=== PATIENT | female | born 1965 | race Caucasian/White ===

== ENCOUNTER → 2016-06-15 | Outpatient (CLI) | payer MEDICAID ==
--- NOTE | 2016-06-16 07:16 | XR ---
EXAMINATION TYPE: XR lumbosacral spine min 4V DATE OF EXAM: 06/15/2016 3:46 PM CLINICAL HISTORY: pain COMPARISON: NONE TECHNIQUE: Frontal, lateral, and oblique images of the lumbar spine are obtained. FINDINGS: There are 5 lumbar type vertebral bodies identified. The lumbar spine shows satisfactory alignment without evidence of acute fracture or dislocation. Vertebral body heights are within normal limits. Minimal degenerative disc space narrowing with ventral spondylosis. The overlying soft tis tiera appears unremarkable. IMPRESSION: No acute fracture or dislocation is seen in the lumbar spine.ICD 10 NO FRACTURE, INITIAL EVALUATION
== END | disposition home or self-care (01) ==
LOC: RADXRYALE 08:55
PROVIDERS: ATTEND Family Medicine
DX: M54.17 Radiculopathy, lumbosacral region (principal); M54.9 Dorsalgia, unspecified
CPT/HCPCS: 72110

== ENCOUNTER → 2017-11-28 | Outpatient (CLI) | payer MEDICAID ==
--- NOTE | 2017-11-28 10:29 | ECHOF ---
Referral Reason:I10 Hypertension,R07.9 Chest Pain,R06.02 Shortness MEASUREMENTS -------- HEIGHT: 167.6 cm WEIGHT: 111.6 kg BP: 131/79 RVIDd: 3.1 cm (< 3.3) IVSd: 1.1 cm (0.6 - 1.1) LVIDd: 4.5 cm (3.9 - 5.3) LVPWd: 1.0 cm (0.6 - 1.1) IVSs: 1.7 cm LVIDs: 2.9 cm LVPWs: 1.5 cm LA Diam: 3.0 cm (2.7 - 3.8) LAESV Index (A-L): 23.36 ml/m Ao Diam: 3.0 cm (2.0 - 3.7) AV Cusp: 2.2 cm (1.5 - 2.6) MV EXCURSION: 15.488 mm (> 18.000) MV EF SLOPE: 130 mm/s (70 - 150) EPSS: 0.5 cm MV E Joaquín: 1.02 m/s MV DecT: 241 ms MV A Joaquín: 1.04 m/s MV E/A Ratio: 0.98 RAP: 5.00 mmHg RVSP: 23.71 mmHg FINDINGS -------- Sinus rhythm. This was a technically good study. The left ventricular size is normal. There is borderline concentric left ventricular hypertrophy. Overall left ventricular systolic function is normal with, an EF between 55 - 60 %. The right ventricle is normal in size. Normal LA size by volume 22+/-6 ml/m2. The right atrium is normal in size. The aortic valve is trileaflet and appears structurally normal. The mitral valve is normal. Mild tricuspid regurgitation present. Right ventricular systolic pressure is normal at < 35 mmHg. Trace/mild (physiologic) pulmonic regurgitation. The aortic root size is normal. Normal inferior vena cava with normal inspiratory collapse consistent with estimated right atrial pre ssure of 5 mmHg. There is no pericardial effusion. CONCLUSIONS -------- 1. Sinus rhythm. 2. This was a technically good study. 3. The left ventricular size is normal. 4. There is borderline concentric left ventricular hypertrophy. 5. Overall left ventricular systolic function is normal with, an EF between 55 - 60 %. 6. The right ventricle is normal in size. 7. Normal LA size by volume 22+/-6 ml/m2. 8. The right atrium is normal in size. 9. The aortic valve is trileaflet and appears structurally normal. 10. The mitral valve is normal. 11. Mild tricuspid regurgitation present. 12. Right ventricular systolic pressure is normal at < 35 mmHg. 13. Trace/mild (physiologic) pulmonic regurgitation. 14. The aortic root size is normal. 15. Normal inferior vena cava with normal inspiratory collapse consistent with estimated right atrial pressure of 5 mmHg. 16. There is no pericardial effusion. KIER DRIER: Silvia Osborn RDCS
--- NOTE | 2017-11-28 10:38 | P.STRESS ---
- Stress Test Note Stress Test Results/Findings: Exam Performed: stress echo exercise Exam Date: 11/28/17 Reason for Exam: CP/SOB Height: 5 ft 6 in Weight: 111.584 kg Protocol: YINKA Stage: 3 Duration of Exercise: 6MIN 31 SEC Resting Heart Rate: 88 Resting Blood Pressure: 138/66 Maximum Achieved Heart Rate: 163 Maximum Achieved Blood Pressure: 168/73 85% PMHR: 145 100% PMHR: 170 METS: 7.7 Technologist Comment: Stress Test Results/Findings: This is a 51-year-old female with history of hypertension and smoking being evaluated for symptoms of chest pain and shortness of breath. Stress data: Baseline EKG showed sinus rhythm with poor R-wave progression in the anterior leads. Blood pressure at rest is 138/66 with a pulse rate of 88. Patient walked on the Yinka protocol for 6 minutes and 31 seconds achieving a maximal heart rate of 168 with a blood pressure 168/73. EKGs taken during and after the exercise did not reveal any significant changes from the baseline. Echo data: Baseline echo images showed normal wall motion and thickening. Exercise echo images showed augmentation of wall motion and thickening in all segments. Final impression: #1. Negative stress test #2. Negative stress echo.
== END | disposition home or self-care (01) ==
LOC: RADECHMAIN 08:08
PROVIDERS: ATTEND Internal Medicine Clinical Cardiac Electrophysiology
DX: I07.9 Rheumatic tricuspid valve disease, unspecified (principal); I37.1 Nonrheumatic pulmonary valve insufficiency; I10 Essential (primary) hypertension
CPT/HCPCS: 93306; 93351

== ENCOUNTER 2018-02-06 06:44 | Day surgery (SDC) | payer MEDICAID ==
[2018-02-01 12:56] VITALS: BMI 39.5
[~2018-02-06 06:44] MED LIST: DEXAMETHASONE SOD PHOSPHATE 10 MG/ML 1 ML VIAL IV ONE; HYDROmorphone 0.5 MG/0.5 ML SYRINGE IVP PRN; HYDROmorphone 1 MG/ML 1 ML SYRINGE IVP PRN; LACTATED RINGERS 1,000 ML IV SCH; LIDOCAINE 1% 20 ML VIAL (10MG/ML) FOR IV START INTRADERMA PRN; ONDANSETRON 4 MG/2 ML VIAL IVP ONE; SCOPOLAMINE 1.5MG/72HR PATCH TRANSDERM ONE
[2018-02-06 07:12] VITALS: TEMP 99
[2018-02-06] MEDS ORDERED: LIDOCAINE 1% INJ 10MG/ML (20 ML MDV) ONE (07:42)
[2018-02-06] MEDS ORDERED: PROPOFOL 10 MG/ML 20 ML VIAL IV ONE (07:42)
--- NOTE | 2018-02-06 07:48 | P.GSHP ---
History of Present Illness H&P Date: 02/06/18 Chief Complaint: Screening colonoscopy This is a 52-year-old female who presents today for screening colonoscopy. Patient denies a significant GI complaints. Past Medical History Past Medical History: Hypertension History of Any Multi-Drug Resistant Organisms: None Reported Past Surgical History: Breast Surgery, Section, Cholecystectomy Additional Past Surgical History / Comment(s): lumpectomy LEFT BREAST, BENIGN Past Anesthesia/Blood Transfusion Reactions: Postoperative Nausea & Vomiting ( PONV) Smoking Status: Former smoker - Past Family History Mother Family Medical History: No Reported History Medications and Allergies Home Medications Medication Instructions Recorded Confirmed Type Losartan/Hydrochlorothiazide 1 tab PO DAILY 05/29/15 02/06/18 History [Losartan-Hctz 100-25 mg Tab] Acetaminophen Tab [Tylenol Tab] 650 mg PO Q4H 07/15/15 02/01/18 History buPROPion HCL [buPROPion HCL SR] 150 mg PO DAILY 02/01/18 02/06/18 History Allergies Allergy/AdvReac Type Severity Reaction Status Date / Time No Known Allergies Allergy Verified 02/06/18 07:06 Surgical - Exam Vital Signs Temp Pulse Resp BP Pulse Ox 99.0 F 98 16 155/81 95 02/06/18 07:11 02/06/18 07:11 02/06/18 07:11 02/06/18 07:11 02/06/18 07:11 - General well developed, no distress - Eyes PERRL - ENT normal pinna - Neck no masses - Respiratory normal expansion - Cardiovascular Rhythm: regular - Abdomen Abdomen: soft, non tender Assessment and Plan Assessment: Perform screening colonoscopy.
--- NOTE | 2018-02-06 08:01 | P.OP ---
Date of Procedure: 02/06/18 Preoperative Diagnosis: Screening colonoscopy Postoperative Diagnosis: Normal colon Procedure(s) Performed: Colonoscopy Anesthesia: MAC Surgeon: Talat Eugene Pathology: none sent Condition: stable Disposition: PACU Description of Procedure: PROCEDURE: The patient was placed on the endoscopy table in the lateral position. Digital rectal examination was performed which revealed no abnormalities. . Flexible colonoscope was then placed in the patient's anus and passed throughout the entire colon. The ileocecal valve was visualized. The cecum, ascending, transverse, descending and sigmoid colon were normal. The rectum was normal as well. There were no masses, polyps or diverticula noted in the entire colon. SUMMARY OF FINDINGS: Normal colonoscopy.
[2018-02-06 08:07] VITALS: PULSE 94
[2018-02-06 08:21] VITALS: BP 127/83; RESP 18
== END 2018-02-06 08:40 | disposition home or self-care (01) ==
LOC: ORWHC2ENDO 06:44
PROVIDERS: ATTEND Surgery
DX: Z12.11 Encounter for screening for malignant neoplasm of colon (principal); I10 Essential (primary) hypertension; Z87.891 Personal history of nicotine dependence; Z79.899 Other long term (current) drug therapy; F32.9 Major depressive disorder, single episode, unspecified
CPT/HCPCS: 81025; J2001; J2704; G0121

== ENCOUNTER → 2018-09-18 | Outpatient (CLI) | payer MEDICAID ==
--- NOTE | 2018-09-19 10:32 | MM ---
Reason for exam: screening (asymptomatic). History: Patient is postmenopausal. Benign lumpectomy of the left breast, 2006. Physical Findings: A clinical breast exam by your physician is recommended on an annual basis and results should be correlated with mammographic findings. MG 3D Screening Mammo W/Cad Bilateral CC and MLO view(s) were taken. No prior studies available for comparison. The breast tissue is heterogeneously dense. This may lower the sensitivity of mammography. Scattered benign calcifications. Focal asymmetry upper outer right breast middle third position. ASSESSMENT: Incomplete: need additional imaging evaluation, BI-RAD 0 RECOMMENDATION: Special view mammogram of the right breast. If lesion persists on supplemental views, image directed ultrasound is recommended. [facility] will attempt to contact patient to return for supplemental views and ultrasound if indicated.
== END | disposition home or self-care (01) ==
LOC: RADMAMWWP 08:11
PROVIDERS: ATTEND Family Medicine
DX: Z12.31 Encounter for screening mammogram for malignant neoplasm of breast (principal)
CPT/HCPCS: 77063; 77067

== ENCOUNTER → 2018-09-26 | Outpatient (CLI) | payer MEDICAID ==
--- NOTE | 2018-09-27 07:47 | MM ---
Reason for exam: additional evaluation requested from abnormal screening. Last mammogram was performed less than 1 month ago. History: Patient is postmenopausal. Benign excisional biopsy of the left breast, 2006. Physical Findings: Nurse did not find any significant physical abnormalities on exam. MG 3D Work Up W/Cad RT CC with magnification, MLO with magnification, and LM view(s) were taken of the right breast. Prior study comparison: September 18, 2018, bilateral MG 3d screening mammo w/cad. The breast tissue is heterogeneously dense. This may lower the sensitivity of mammography. There are benign appearing round calcifications in the right breast. No distinct lesion persists on additional views. These results were verbally communicated with the patient and result sheet given to the patient on 09/26/18. ASSESSMENT: Benign, BI-RAD 2 RECOMMENDATION: Return to routine screening mammogram schedule for both breasts.
== END | disposition home or self-care (01) ==
LOC: RADMAMWWP 14:47
PROVIDERS: ATTEND Family Medicine
DX: R92.8 Other abnormal and inconclusive findings on diagnostic imaging of breast (principal)
CPT/HCPCS: 77061; 77065

== ENCOUNTER → 2019-12-28 | Outpatient (CLI) | payer MEDICAID ==
--- NOTE | 2019-12-28 15:55 | MR ---
EXAMINATION TYPE: MR shoulder RT wo con DATE OF EXAM: 12/28/2019 COMPARISON: None HISTORY: Rt shoulder pain, limited ROM x 3 mos Multiplanar multiecho imaging of the right shoulder was performed without contrast. There is increased signal and thickening of the supraspinatus tendon at the greater tuberosity of the humerus. There is no retraction. There is small amount of fluid in the subdeltoid bursa. There is sm all shoulder joint effusion. There is moderate spurring at the AC joint and subacromial mild impingem ent. The biceps tendon is intact. Subscapularis tendon is intact. The glenoid je appear intact. I see n o bony destructive process. IMPRESSION: There is large full-thickness tear of the supraspinatus tendon without retraction. Mild shoulder join t effusion and some deltoid effusion. This is consistent with bursitis. Moderate degenerative change at the AC joint with cystic changes and spurring and subacromial impingement.
== END | disposition home or self-care (01) ==
LOC: RADMRIMAIN 08:47
PROVIDERS: ATTEND Orthopaedic Surgery Sports Medicine
DX: M75.121 Complete rotator cuff tear or rupture of right shoulder, not specified as traumatic (principal); M19.011 Primary osteoarthritis, right shoulder

== ENCOUNTER 2020-03-12 10:12 | Day surgery (SDC) | payer MEDICAID ==
[2020-03-05 10:42] VITALS: BMI 39.5
[~2020-03-12 10:12] MED LIST changes: +ACETAMINOPHEN TAB 500 MG TAB PO PRN; -DEXAMETHASONE SOD PHOSPHATE 10 MG/ML 1 ML VIAL IV ONE; +GABAPENTIN 300 MG CAP PO PRN; -HYDROmorphone 1 MG/ML 1 ML SYRINGE IVP PRN; -LIDOCAINE 1% 20 ML VIAL (10MG/ML) FOR IV START INTRADERMA PRN; +ONDANSETRON 4 MG/2 ML VIAL IVP PRN; +Pre Op ABX Message 1 EACH MISC MISCELLANE ONE; -SCOPOLAMINE 1.5MG/72HR PATCH TRANSDERM ONE; +fentaNYL (PF) 50 MCG/ML 2 ML AMP IV PRN
[2020-03-12 10:49] LABS: Glucose,Whole Blood 161 mg/dL (75-99)
[2020-03-12] MEDS ORDERED: DEXAMETHASONE SOD PHOSPHATE 4 MG/ML 1 ML VIAL IV ONE (10:50)
[2020-03-12] MEDS ORDERED: LIDOCAINE 1% (10MG/ML) FOR IV START INTRADERMA ONE (10:50)
[2020-03-12 10:54] VITALS: TEMP 98.4
[2020-03-12] MEDS ORDERED: MIDAZOLAM 2 MG/2 ML VIAL IV ONE (10:59)
[2020-03-12] MEDS ORDERED: ROPIVACAINE 5 MG/ML 30 ML VIAL ONE (12:02)
[2020-03-12] MEDS ORDERED: SUCCINYLCHOLINE CHLORIDE 100 MG/5 ML SYR IV ONE (12:02)
[2020-03-12] MEDS ORDERED: fentaNYL (PF) 50 MCG/ML 2 ML AMP ONE (12:02)
[2020-03-12] MEDS ORDERED: PHENYLEPHRINE 10 MG/ML VIAL ONE (12:02)
[2020-03-12] MEDS ORDERED: MIDAZOLAM 2 MG/2 ML VIAL ONE (12:02)
[2020-03-12] MEDS ORDERED: PROPOFOL 10 MG/ML 20 ML VIAL IV ONE (12:02)
[2020-03-12] MEDS ORDERED: LIDOCAINE 1% INJ 10MG/ML (20 ML MDV) ONE (12:02)
[2020-03-12] MEDS ORDERED: DEXAMETHASONE SOD PHOSPHATE 4 MG/ML 1 ML VIAL ONE (12:02)
[2020-03-12 13:52] LABS: Glucose,Whole Blood 180 mg/dL (75-99)
[2020-03-12 14:59] VITALS: BP 132/86
[2020-03-12 15:23] VITALS: PULSE 89; RESP 18
--- NOTE | 2020-03-12 18:29 | P.ANPRN ---
Procedure Note - Anesthesia - Nerve Block Performed Right Interscalene Single Time Out Performed: Yes Date of Procedure: 03/11/20 Procedure Start Time: 10:58 Procedure Stop Time: 11:02 Location of Patient: PreOp Indication: Acute Post-Operative Pain, Requested by Surgeon Sedation Type: Sedate with meaningful contact maintained Preparation: Sterile Prep Position: Supine Needle Types: Pajunk Needle Gauge: 21 Ultrasound used to visualize needle placement: Yes Ultrasound used to observe medication spread: Yes Blood Aspirated: No Pain Paresthesia on Injection Noted: No Resistance on Injection: Normal Image Stored and Saved: Yes Events: Uneventful and Well Tolerated (ropi .5% 20cc plus dexamethasone 4mg)
--- NOTE | 2020-03-12 20:52 | OP ---
OPERATIVE REPORT DATE OF PROCEDURE: 03/12/2020. SURGEON: Jeff Koenig M.D. [employer]: [facility]. PREOPERATIVE DIAGNOSES: 1. Right shoulder full-thickness rotator cuff tear. 2. Right shoulder superior labral tear. 3. Right shoulder bicipital tenosynovitis. 4. Right shoulder subacromial impingement. POSTOP DIAGNOSES: 1. Right shoulder full-thickness tear of the supraspinatus 2 cm x 2 cm tear. 2. Right shoulder type 2 superior labral tear. 3. Right shoulder partial tearing intra-articular long head of the biceps. 4. Right shoulder type 2-3 anterolateral acromial spur. PROCEDURE PERFORMED: 1. Right shoulder arthroscopic rotator cuff repair, 2 cm x 2 cm tear of the supraspinatus. 2. Right shoulder arthroscopic acromioplasty. 3. Right shoulder arthroscopic biceps tenotomy. 4. Right shoulder arthroscopic anterior superior posterior labral debridement. ANESTHESIA: General endotracheal. ESTIMATED BLOOD LOSS: Minimal. TOURNIQUET: None. DRAINS: None. COMPLICATIONS: None. DISPOSITION: Postanesthesia care unit. Examination under anesthesia, right shoulder elevation 160 degrees, external rotation to side is to 40 degrees, external rotation at 90 degrees, abduction 90 degrees, internal rotation 90 degrees, abduction was 60 degrees, sulcus less than 1 cm, anterior translation glenoid face, posterior translation glenoid face. ARTHROSCOPIC FINDINGS: Right shoulder: 1. Superior labrum, type 2 superior labral tear tearing both anterior post to the biceps anchor. The biceps anchor was not intact. There is also some fraying and mild partial tearing of the intra-articular portion of long head of the biceps tendon. 2. Anterior inferior labrum normal glenoid labral attached. 3. Posterior labral tearing of the posterior labrum from the 10 o'clock position and 12 o'clock position on the glenoid face. 4. Humeral head cartilage normal. 5. Rotator cuff full-thickness tear of the supraspinatus 2 cm x 2 cm with minimal retraction. 6. Glenoid face cartilage normal. 7. Subacromial space significant fraying of the undersurface of the coracoacromial ligament with a type 2 anterolateral acromial spur. INDICATIONS: Janiya is a very pleasant 54-year-old female with right shoulder pain. She sustained injury to her shoulder. She has noted weakness as well as significant pain in the shoulder. She has been through a fairly significant course of nonoperative treatment up to this point. Physical examination and MRI reveal tearing of the superior labrum as well as a full-thickness rotator cuff tear. At this point in time, she feels as if she has failed nonoperative treatment and would like to proceed with operative intervention. Long discussion held with the patient with regard to treatment options. The risks of procedure were all discussed with her in detail. These risks include, but are not limited to risk of infection, nerve damage, bleeding, pain, and a small risk of deep vein thrombosis which could lead to fatal pulmonary embolism. Further risks include lack of healing rotator cuff and the possibility for biceps contour change with a biceps tenotomy. The patient understands the operation as well as the fact there is no guarantee of improvement of her symptoms. Appropriate informed consent was obtained. DESCRIPTION OF THE PROCEDURE: Patient identified in preop holding area. Surgical site was marked by both the patient and myself. She was given 2 g of Ancef IV for prophylactic purposes. She was then transported to operative suite. She was placed supine on the operative table. She was then intubated endotracheally and received general anesthesia throughout the operative procedure. Examination under anesthesia was then performed. The findings noted above. The patient was then placed into the beach chair position well-padded in preparation for surgery. Great care was taken to ensure the cervical spine is in neutral alignment well-padded and maintained that way throughout the operative procedure. Great care was also taken to ensure that her legs were appropriately padded as well. The patient's right upper extremity was then prepped, draped in usual sterile fashion. Standard surgical pause undertaken to ensure that appropriate preop antibiotics were given and that we were operating on the correct site. All staff in room were in agreement and we proceeded. The acromion as well as the AC joint coracoid marked with a surgical pen. The skin of the anticipated port sites were also marked with a surgical pen. The skin of the anticipated port sites were then injected with 0.25% Marcaine with epinephrine. I then proceeded to make a posterior portal. A 30 degree arthroscope to reduce the glenohumeral joint through this portal. The arthroscopic pump pressure was set to 40 mmHg and maintained at that level throughout the entire case. Next utilizing an 18-gauge spinal needle to topically localize the placement, the anterior superior portal was made. This was made just underneath the biceps tendon high rotator interval. Small 5.75 mm cannula was then placed. The outflow was then done through this cannula. Diagnostic arthroscopy of shoulder was then performed. The findings noted above. Great care was taken to probe superior labral complex as well as the biceps anchor. The biceps anchor was not firmly attached. She had significant tearing of the superior labrum. This extended both anterior and posterior to the biceps anchor. The intra- articular portion along the biceps tendon did have a partial tearing as well. At this point, I proceeded with a biceps tenotomy. The biceps was tenotomized near its attachment on the supraglenoid tubercle. This was done utilizing the ArthroCare wand. I then proceeded to debride the torn loose tissue of the superior labrum. This was debrided anteriorly, superiorly and posteriorly back to stable tissue. I then inspect the rotator cuff from intra-articular. She did have a full-thickness tear of the supraspinatus. The tear was debrided very gently from intra-articular utilizing synovial shaver. At this point in time no further work was deemed necessary from intra-articular. The arthroscope was removed from the glenohumeral joint and utilizing the same posterior skin incision was placed in the subacromial space. Next utilizing an 18-gauge spinal needle to topically localize placement, a lateral port was made under direct visualization. A subacromial bursectomy was then performed utilizing synovial shaver as well as the ArthroCare wand. There was significant fraying of the undersurface of the coracoacromial ligament. This was then taken down utilizing the ArthroCare wand. This exposed underlying type 2-3 anterolateral acromial spur. I then proceeded with an acromioplasty. Utilizing synovial shaver in a mere-type fashion, the acromioplasty was completed. When the acromioplasty was complete, the arthroscope was placed in the lateral portal and the shaver placed posteriorly to ensure it was adequate and coplanar with posterior aspect of the acromion. I then proceeded with repair of the rotator cuff tear. She did have a full-thickness tear of the supraspinatus. It measured approximately 2 cm x 2 cm. A 4th portal was then made off the anterolateral angle of the acromion. Again, this was done after first localizing was placed with an 18-gauge spinal needle. The footprint of the greater tuberosity was then debrided of all devitalized tissue utilizing synovial shaver as well as the ArthroCare wand. I then performed a light decortication of the greater tuberosity utilizing synovial shaver in a mere type fashion. This provided a nice bleeding surface with repair. I then placed small microfracture holes along the articular margin to again enhance the healing of the repair. I then utilized scorpion suture passer and placed Arthrex fiber tape suture in inverted horizontal mattress fashion in the posterior half of the tear. The sutures were shuttled out through the anterior portal. I then placed a 2nd Arthrex fiber tape suture in an inverted horizontal mattress fashion. The anterior half of the tear, these sutures were also shuttled out through the anterior portal. I then proceeded with placement of the posterior anchor. The awl was placed in the most posterior lateral aspect of the footprint. She had very good bone quality. The FiberTape suture was then shuttled through an Arthrex 4.75 mm biocomposite SwiveLock anchor. They were tensioned appropriately and the anchor was placed with an excellent purchase and bone. This brought the posterior half of the tear down very nicely the most lateral aspect of the footprint. I then proceeded with placement of the anterior anchor. The awl was placed in the most anterolateral aspect of the footprint. This was just posterior to the bicipital groove. Again she had very good bone quality. The anterior sutures were then shuttled through and another Arthrex 4.75 mm bio composite SwiveLock anchor. The sutures were tensioned appropriately and then the anchor was placed with an excellent purchase in bone. This brought the anterior half of the tear down very nicely to the most anterolateral aspect of the footprint. At this point time, no further work was deemed necessary. The shoulder was thoroughly irrigated and drained with an outflow canned. The arthroscope equipment was removed from the shoulder. The arthroscopic portals were then closed with 3-0 nylon interrupted suture. Sterile compressive dressing was then applied. The patient's right upper extremity was placed into a sling shot type rotator cuff immobilizer. All sponge and needle counts were deemed correct prior to closure. The patient tolerated procedure without apparent complication. She was transferred recovery room in stable condition. MMODL / IJN: [id number] /
== END 2020-03-12 15:35 | disposition home or self-care (01) ==
LOC: OR 10:12
PROVIDERS: ATTEND Orthopaedic Surgery Sports Medicine
DX: M75.121 Complete rotator cuff tear or rupture of right shoulder, not specified as traumatic (principal); S43.431A Superior glenoid labrum lesion of right shoulder, initial encounter; M75.21 Bicipital tendinitis, right shoulder; M75.41 Impingement syndrome of right shoulder; S46.111A Strain of muscle, fascia and tendon of long head of biceps, right arm, initial encounter; M19.011 Primary osteoarthritis, right shoulder; M66.811 Spontaneous rupture of other tendons, right shoulder; M75.81 Other shoulder lesions, right shoulder; I10 Essential (primary) hypertension; E11.9 Type 2 diabetes mellitus without complications; H91.90 Unspecified hearing loss, unspecified ear; Z79.84 Long term (current) use of oral hypoglycemic drugs; Z79.899 Other long term (current) drug therapy; Z90.49 Acquired absence of other specified parts of digestive tract; Z98.890 Other specified postprocedural states; Z97.3 Presence of spectacles and contact lenses; Z87.891 Personal history of nicotine dependence
CPT/HCPCS: 29827; 29826; 64415; 76942; C1713; J2250; J1100; J2370; J0690; J2405; J2001; J3010; J2795; J0330; J2704

== ENCOUNTER → 2020-10-27 | Outpatient (CLI) | payer MEDICAID ==
[2020-10-27 09:27] VITALS: BP 121/77; PULSE 77; RESP 18; TEMP 98.1
--- NOTE | 2020-10-27 10:27 | P.HPOB ---
History of Present Illness H&P Date: 10/27/20 Chief Complaint: The patient is here for her routine gynecologic exam. This is a 54-year-old with an LMP of 2019. The patient is here to establish with this office. She is without gynecologic complaints and denies any postmenopausal bleeding. She has not experienced any bad hot flashes related to the menopausal change. It has been more than 10 years since her last pelvic exam. Review of Systems She has lost about 20 pounds over the past 7 months. She has been trying to eat well and exercise. She attributes some of the weight loss to her new diabetes medications. She denies respiratory, cardiac, or GI problems. Past Medical History Past Medical History: Diabetes Mellitus, Hypertension Additional Past Medical History / Comment(s): Type 2 diabetes. 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 History of Any Multi-Drug Resistant Organisms: None Reported Past Surgical History: Breast Surgery, Section, Cholecystectomy Additional Past Surgical History / Comment(s): 2 followed by . Right shoulder rotator cuff surgery. Excisional biopsy LEFT BREAST (BENIGN). Colonoscopy 2018(next after 10yr). Past Anesthesia/Blood Transfusion Reactions: Postoperative Nausea & Vomiting (PONV) Past Psychological History: No Psychological Hx Reported Smoking Status: Former smoker Past Alcohol Use History: Occasional (2 or 3 per month) Additional Past Alcohol Use History / Comment(s): QUIT 2013, STARTED AT AGE 33 (1998), SMOKED 1 PPD Past Drug Use History: None Reported Additional History: She is . She has been with her boyfriend since 2006 and they do not live together. 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 - Past Family History Mother Family Medical History: Dementia, Pulmonary Embolus Additional Family Medical History / Comment(s): Maternal uncle had lung cancer and 3 maternal aunts had breast cancer. Father Family Medical History: Unable to Obtain Medications and Allergies Home Medications Medication Instructions Recorded Confirmed Type Losartan/Hydrochlorothiazide 1 tab PO QAM 05/29/15 10/27/20 History [Losartan-Hctz 100-25 mg Tab] Acetaminophen Tab [Tylenol Tab] 500 mg PO Q4H PRN 07/15/15 10/27/20 History Ibuprofen [Motrin] 800 mg PO DAILY PRN 03/05/20 10/27/20 History Empagliflozin [Jardiance] 10 mg PO DAILY 10/27/20 10/27/20 History Semaglutide [Ozempic] 1 mg SQ WEEKLY 10/27/20 10/27/20 History Allergies Allergy/AdvReac Type Severity Reaction Status Date / Time No Known Allergies Allergy Verified 10/27/20 09:22 Exam Vital Signs Temp Pulse Resp BP Pulse Ox 10/27/20 09:25 98.1 F 77 18 121/77 100 Intake and Output 10/26/20 10/27/20 10/27/20 22:59 06:59 14:59 Other: Weight 102.965 kg Height 5 feet 4 inches, weight 227 pounds, BMI 39.0. This is a well-developed well-nourished white female who is alert and oriented times 3 in no acute distress. HEENT: Within normal limits. NECK: Supple without mass or thyromegaly. CHEST AND LUNGS: Clear to auscultation. HEART: Regular rate and rhythm. BREASTS: Are without mass or discharge. There is bilateral nipple inversion and the patient states she has had this for many years. AXILLARY EXAM: Negative for adenopathy. BACK: Negative for CVA tenderness. ABDOMEN: Soft, nontender, without palpable masses. PELVIC EXAM: Normal external genitalia with mild atrophy. Cervix and vagina appear normal with mild atrophy. The cervix is nulliparous appearing and slightly stenotic secondary to atrophy. There is no unusual discharge. There is no evidence of prolapse. The uterus is midposition, nongravid size and nontender. There are no palpable adnexal masses or tenderness. RECTAL EXAM: Rectovaginal exam is negative for mass or tenderness and is negative for occult blood. EXTREMITIES: Nontender. IMPRESSION: 1. 54-year-old menopausal female with normal gynecologic exam. 2. It has been greater than 10 years since her last pelvic exam. PLAN: 1. Pap smear cotest was performed. 2. Self breast awareness was discussed with the patient. We have also discussed symptoms associated with inflammatory breast cancer. 3. Screening mammogram is scheduled for next month. The order slip was given to the patient for this. 4. Osteoporosis prevention was discussed. I have stressed the importance of adequate calcium, vitamin D and regular exercise. Recommended amounts of calcium and vitamin D were also discussed. 5. She has completed her Covid vaccination series. 6. She was advised to return in one year for her annual well woman exam. I have stressed the importance of having this done on a regular basis and I am recommending yearly exams with yearly mammograms.
== END | disposition home or self-care (01) ==
LOC: WWCWWP 09:11
PROVIDERS: ATTEND Obstetrics & Gynecology
DX: Z01.419 Encounter for gynecological examination (general) (routine) without abnormal findings (principal); E11.9 Type 2 diabetes mellitus without complications; I10 Essential (primary) hypertension; Z79.899 Other long term (current) drug therapy; Z79.84 Long term (current) use of oral hypoglycemic drugs; Z87.891 Personal history of nicotine dependence

== ENCOUNTER → 2020-12-08 | Outpatient (CLI) | payer MEDICAID ==
--- NOTE | 2020-12-09 14:09 | MM ---
Reason for exam: screening (asymptomatic). Last mammogram was performed 2 years and 2 months ago. History: Patient is postmenopausal. Family history of breast cancer in maternal aunt. Benign excisional biopsy of the left breast, 2006. Physical Findings: A clinical breast exam by your physician is recommended on an annual basis and results should be correlated with mammographic findings. MG 3D Screening Mammo W/Cad Bilateral CC and MLO view(s) were taken. Prior study comparison: September 26, 2018, right breast MG 3d work up w/cad RT. September 18, 2018, bilateral MG 3d screening mammo w/cad. The breast tissue is heterogeneously dense. This may lower the sensitivity of mammography. Stable calcifications. There is chronic nodularity in the left breast. No significant changes when compared with prior studies. ASSESSMENT: Benign, BI-RAD 2 RECOMMENDATION: Routine screening mammogram of both breasts in 1 year.
== END | disposition home or self-care (01) ==
LOC: RADMAMWWP 16:41
PROVIDERS: ATTEND Internal Medicine
DX: Z12.31 Encounter for screening mammogram for malignant neoplasm of breast (principal); Z80.3 Family history of malignant neoplasm of breast; Z78.0 Asymptomatic menopausal state
CPT/HCPCS: 77063; 77067

== ENCOUNTER → 2022-01-11 | Outpatient (CLI) | payer MEDICAID ==
[2022-01-11 09:05] VITALS: BP 125/85; PULSE 87; RESP 18; TEMP 98.1
--- NOTE | 2022-01-11 09:31 | P.HPOB ---
History of Present Illness H&P Date: 01/11/22 Chief Complaint: The patient is here for her routine gynecologic exam and ma mmogram. This is a 56-year-old with an LMP of 2019. The patient is without gynecologic complaints and denies any postmenopausal bleeding. Review of Systems The patient has gained 6 pounds over the last year. She denies respiratory, cardiac, or G.I. problems. Past Medical History Past Medical History: Diabetes Mellitus, Hypertension Additional Past Medical History / Comment(s): Type 2 diabetes. 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 History of Any Multi-Drug Resistant Organisms: None Reported Past Surgical History: Breast Surgery, Section, Cholecystectomy Additional Past Surgical History / Comment(s): 2 followed by . Right shoulder rotator cuff surgery. Excisional biopsy LEFT BREAST (BENIGN). Colonoscopy 2018(next after 10yr). Past Anesthesia/Blood Transfusion Reactions: Postoperative Nausea & Vomiting (PONV) Past Psychological History: No Psychological Hx Reported Smoking Status: Former smoker Past Alcohol Use History: Occasional (1 every 3 months) Additional Past Alcohol Use History / Comment(s): QUIT 2013, STARTED AT AGE 33 (1998), SMOKED 1 PPD Past Drug Use History: None Reported Additional History: She is . She has been with her boyfriend since 2006 and they do not live together. 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 - Past Family History Mother Family Medical History: Dementia, Pulmonary Embolus Additional Family Medical History / Comment(s): Maternal uncle had lung cancer and 3 maternal aunts had breast cancer. Father Family Medical History: Unable to Obtain Medications and Allergies Home Medications Medication Instructions Recorded Confirmed Type Losartan/Hydrochlorothiazide 1 tab PO QAM 05/29/15 01/11/22 History [Losartan-Hctz 100-25 mg Tab] Acetaminophen Tab [Tylenol Tab] 500 mg PO Q4H PRN 07/15/15 01/11/22 History Ibuprofen [Motrin] 800 mg PO DAILY PRN 03/05/20 01/11/22 History Empagliflozin [Jardiance] 10 mg PO DAILY 10/27/20 01/11/22 History Semaglutide [Ozempic] 1 mg SQ WEEKLY 10/27/20 01/11/22 History Omeprazole 40 mg PO DAILY 01/11/22 01/11/22 History Allergies Allergy/AdvReac Type Severity Reaction Status Date / Time No Known Allergies Allergy Verified 01/11/22 09:00 Exam Vital Signs Temp Pulse Resp BP Pulse Ox 01/11/22 09:01 98.1 F 87 18 125/85 96 Intake and Output 01/10/22 01/11/22 01/11/22 22:59 06:59 14:59 Other: Weight 105.687 kg Height 5 feet 5 inches, weight 233 pounds, BMI 38.8. This is a well-developed well-nourished heavyset white female who is alert and oriented times 3 in no acute distress. HEENT: Within normal limits. NECK: Supple without mass or thyromegaly. CHEST AND LUNGS: Clear to auscultation. HEART: Regular rate and rhythm. BREASTS: Are without mass or discharge. There is bilateral nipple inversion which the patient states she has had for many years. AXILLARY EXAM: Negative for adenopathy. BACK: Negative for CVA tenderness. ABDOMEN: Soft, nontender, without palpable masses. PELVIC EXAM: Normal external genitalia with mild atrophy. Cervix and vagina appear normal with mild atrophy. There is no unusual discharge. There is no evidence of prolapse. The uterus is midposition, nongravid size and nontender. There are no palpable adnexal masses or tenderness. RECTAL EXAM: Rectovaginal exam is negative for mass or tenderness and is negative for occult blood. EXTREMITIES: Nontender. IMPRESSION: 1. 56-year-old menopausal female with normal gynecologic exam. PLAN: 1. Pap smear was deferred since she had a negative Pap smear cotest on 10/27/2020. 2. Self breast awareness was discussed with the patient. We have also discussed symptoms associated with inflammatory breast cancer. 3. Screening mammogram was done today. 4. Osteoporosis prevention was discussed. I have stressed the importance of adequate calcium, vitamin D and regular exercise. Recommended amounts of calcium and vitamin D were also discussed. 5. She was advised to return in one year for her annual well woman exam.
--- NOTE | 2022-01-12 09:05 | MM ---
Reason for Exam: Screening (asymptomatic). Last mammogram was performed 1 year(s) and 1 month(s) ago. Patient History: Menarche at age 15. First Full-Term at age 21. Postmenopausal. 2006, Benign Excisional Biopsy on the left side. Maternal aunt had breast cancer. Risk Values: Daxa 5 year model risk: 1.1%. NCI Lifetime model risk: 7.9%. Prior Study Comparison: 09/18/2018 Bilateral Screening Mammogram, [facility]. 09/26/2018 Right Diagnostic Mammogram, [facility]. 12/08/2020 Bilateral Screening Mammogram, [facility]. Tissue Density: The breast tissue is heterogeneously dense. This may lower the sensitivity of mammography. Findings: Analyzed By CAD. There are some scattered loosely grouped benign appearing round calcifications throughout the bilateral breasts redemonstrated. Benign-appearing bilateral axillary lymph nodes are redemonstrated. There is no suspicious group of microcalcifications or new suspicious mass in either breast. Overall Assessment: Benign, BI-RAD 2 Management: Screening Mammogram of both breasts in 1 year. A clinical breast exam by your physician is recommended on an annual basis and results should be correlated with mammographic findings. Electronically signed and approved by: David Falk M.D.
== END | disposition home or self-care (01) ==
LOC: RADMAMWWP 08:32
PROVIDERS: ATTEND Obstetrics & Gynecology
DX: Z12.31 Encounter for screening mammogram for malignant neoplasm of breast (principal); I10 Essential (primary) hypertension; E11.9 Type 2 diabetes mellitus without complications; Z87.891 Personal history of nicotine dependence
CPT/HCPCS: 77063; 77067

== ENCOUNTER → 2022-08-12 | Outpatient (CLI) | payer MEDICAID ==
--- NOTE | 2022-08-12 08:02 | MM ---
Reason for Exam: Clinical finding. Last screening mammogram was performed 7 month(s) ago. Indicated Problems: Lump or thickening of the right side (size 5) for 1 Week(s). Patient History: Menarche at age 15. First Full-Term at age 21. Postmenopausal. 2006, Benign Excisional Biopsy on the left side. Maternal aunt had breast cancer. Risk Values: Daxa 5 year model risk: 1.1%. NCI Lifetime model risk: 7.9%. Prior Study Comparison: 09/26/2018 Right Diagnostic Mammogram, [facility]. 12/08/2020 Bilateral Screening Mammogram, [facility]. 01/11/2022 Bilateral MG 3D screening mammo w/cad, [facility]. Tissue Density: Right: The breast tissue is heterogeneously dense. This may lower the sensitivity of mammography. Findings: Analyzed By CAD. Nothing to correlate with palpable abnormalities. No new suspicious masses, calcifications or distortions. Overall Assessment: Incomplete: need additional imaging evaluation, BI-RAD 0 Management: Diagnostic Breast Ultrasound of the right breast. Results were given to the patient verbally at the time of exam. Patient should continue monthly self-breast exams. A clinical breast exam by your physician is recommended on an annual basis. This exam should not preclude additional follow-up of suspicious palpable abnormalities. Note on Daxa scores and lifetime risk: 1. A Daxa score greater than 3% is considered moderate risk. If this is the case, consider specialist referral to assess eligibility for a risk reducing agent. 2. If overall lifetime risk for the development of breast cancer is 20% or higher, the patient may qualify for future screening with alternating mammogram and breast MRI. Electronically signed and approved by: Fausto Allen DO
--- NOTE | 2022-08-12 08:58 | USB ---
Reason for Exam: Clinical finding. Patient History: Menarche at age 15. First Full-Term at age 21. Postmenopausal. 2006, Benign Excisional Biopsy on the left side. Maternal aunt had breast cancer. Risk Values: Daxa 5 year model risk: 1.1%. NCI Lifetime model risk: 7.9%. Technique: Method: Targeted. Prior Study Comparison: 09/26/2018 Right Diagnostic Mammogram, [facility]. 12/08/2020 Bilateral Screening Mammogram, [facility]. 01/11/2022 Bilateral MG 3D screening mammo w/cad, [facility]. Findings: The medial section of the breast of the right breast, the axilla of the right breast and the retroareolar of the right breast were scanned. Imaged: Ultrasound imaging of: Area of concern, retroareolar region and axilla. Palpable abnormalities are felt to correlate with patient's ribs. No evidence for organizing fluid collection or mass. Overall Assessment: Benign, BI-RAD 2 Management: Screening Mammogram of both breasts in 1 year. A clinical breast exam by your physician is recommended on an annual basis and results should be correlated with mammographic findings. This exam should not preclude additional follow-up of suspicious palpable abnormalities. Results were given to the patient verbally at the time of exam. Electronically signed and approved by: Fausto Allen DO
== END | disposition home or self-care (01) ==
LOC: RADMAMWWP 07:31
PROVIDERS: ATTEND Internal Medicine
DX: N63.10 Unspecified lump in the right breast, unspecified quadrant (principal); Z78.0 Asymptomatic menopausal state; Z80.3 Family history of malignant neoplasm of breast
CPT/HCPCS: 77061; 77065

== ENCOUNTER → 2023-02-21 | Outpatient (CLI) | payer MEDICAID ==
[2023-02-21 08:19] VITALS: BP 128/86; PULSE 88; RESP 17; TEMP 97.8
--- NOTE | 2023-02-21 08:25 | P.HPOB ---
History of Present Illness H&P Date: 02/21/23 Chief Complaint: The patient is here for her routine gynecologic exam and ma mmogram. This is a 57-year-old with an LMP of 2019. The patient is without gynecologic complaints. Review of Systems The patient has lost 11 pounds over the last year. She has been trying to lose weight with diet and exercise. She denies respiratory, cardiac, or G.I. problems. Past Medical History Past Medical History: Diabetes Mellitus, Hypertension Additional Past Medical History / Comment(s): Type 2 diabetes. 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 History of Any Multi-Drug Resistant Organisms: None Reported Past Surgical History: Breast Surgery, Section, Cholecystectomy Additional Past Surgical History / Comment(s): 2 followed by . Right shoulder rotator cuff surgery. Excisional biopsy LEFT BREAST (BENIGN). Colonoscopy 2018(next after 10yr). Past Anesthesia/Blood Transfusion Reactions: Postoperative Nausea & Vomiting (PONV) Past Psychological History: No Psychological Hx Reported Smoking Status: Former smoker Past Alcohol Use History: Occasional (2 drinks per month.) Additional Past Alcohol Use History / Comment(s): QUIT 2013, STARTED AT AGE 33 (1998), SMOKED 1 PPD Past Drug Use History: None Reported Additional History: She is . She has been with her boyfriend since 2005 and they do not live together. 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 - Past Family History Mother Family Medical History: Dementia, Pulmonary Embolus Additional Family Medical History / Comment(s): Maternal uncle had lung cancer and 3 maternal aunts had breast cancer. Father Family Medical History: Unable to Obtain Medications and Allergies Home Medications Medication Instructions Recorded Confirmed Type Acetaminophen Tab [Tylenol Tab] 500 mg PO Q4H PRN 07/15/15 02/21/23 History Ibuprofen [Motrin] 800 mg PO DAILY PRN 03/05/20 02/21/23 History Empagliflozin [Jardiance] 10 mg PO DAILY 10/27/20 02/21/23 History Omeprazole 40 mg PO DAILY 01/11/22 02/21/23 History Losartan [Cozaar] 100 mg PO DAILY 02/21/23 02/21/23 History Tirzepatide [Mounjaro] 10 mg INJ WEEKLY 02/21/23 02/21/23 History Allergies Allergy/AdvReac Type Severity Reaction Status Date / Time No Known Allergies Allergy Verified 02/21/23 07:54 Exam Vital Signs Temp Pulse Resp BP Pulse Ox 02/21/23 07:58 97.8 F 88 17 128/86 98 Intake and Output 02/20/23 02/21/23 02/21/23 22:59 06:59 14:59 Other: Weight 100.698 kg Height 5 feet 3 inches, weight 222 pounds, BMI 39.3. This is a well-developed well-nourished white female who is alert and oriented times 3 in no acute distress. HEENT: Within normal limits. NECK: Supple without mass or thyromegaly. CHEST AND LUNGS: Clear to auscultation. HEART: Regular rate and rhythm. BREASTS: Are without mass or discharge. There is bilateral nipple inversion which the patient states she has had for many years. AXILLARY EXAM: Negative for adenopathy. BACK: Negative for CVA tenderness. ABDOMEN: Soft, nontender, without palpable masses. PELVIC EXAM: Normal external genitalia with mild atrophy. Cervix and vagina appear normal with mild atrophy. There is no unusual discharge. There is no evidence of prolapse. The uterus is midposition, nongravid size and nontender. There are no palpable adnexal masses or tenderness. RECTAL EXAM: Rectovaginal exam is negative for mass or tenderness and is negative for occult blood. EXTREMITIES: Nontender. IMPRESSION: 1. 57-year-old menopausal female with normal gynecologic exam. PLAN: 1. Pap smear was deferred since she had a negative Pap smear CLOtest on 10/27/2020. 2. Self breast awareness was discussed with the patient. We have also discussed symptoms associated with inflammatory breast cancer. 3. Screening mammogram will be done today. 4. Osteoporosis prevention was discussed. I have stressed the importance of adequate calcium, vitamin D and regular exercise. Recommended amounts of calcium and vitamin D were also discussed. 5. Weight control was discussed with the patient. I have stressed the im portance of good nutrition, regular meals, adequate fiber, and regular activity. 6. She was advised to return in one year for her annual well woman exam.
--- NOTE | 2023-02-22 16:59 | MM ---
Reason for Exam: Screening (asymptomatic). Last mammogram was performed 1 year(s) and 1 month(s) ago. Patient History: Menarche at age 15. First Full-Term at age 21. Postmenopausal. 2006, Benign Excisional Biopsy on the left side. Maternal aunt had breast cancer. Risk Values: Daxa 5 year model risk: 1.2%. NCI Lifetime model risk: 7.8%. Prior Study Comparison: 12/08/2020 Bilateral Screening Mammogram, [facility]. 01/11/2022 Bilateral MG 3D screening mammo w/cad, [facility]. 08/12/2022 Right MG 3D diag mammo w/cad RT, [facility]. Tissue Density: The breast tissue is heterogeneously dense. This may lower the sensitivity of mammography. Findings: Analyzed By CAD. Unchanged low axillary tail lymph nodes on the left. Unchanged bilateral areas of asymmetric density. There is no suspicious group of microcalcifications or new suspicious mass in either breast. Overall Assessment: Benign, BI-RAD 2 Management: Screening Mammogram of both breasts in 1 year. . Patient should continue monthly self-breast exams. A clinical breast exam by your physician is recommended on an annual basis. This exam should not preclude additional follow-up of suspicious palpable abnormalities. Note on Daxa scores and lifetime risk: 1. A Daxa score greater than 3% is considered moderate risk. If this is the case, consider specialist referral to assess eligibility for a risk reducing agent. 2. If overall lifetime risk for the development of breast cancer is 20% or higher, the patient may qualify for future screening with alternating mammogram and breast MRI. Electronically signed and approved by: Lisa David M.D. Radiologist
== END ==
LOC: WWCWWP 07:43
PROVIDERS: ATTEND Obstetrics & Gynecology
DX: Z12.31 Encounter for screening mammogram for malignant neoplasm of breast (principal); E11.9 Type 2 diabetes mellitus without complications; I10 Essential (primary) hypertension; Z90.49 Acquired absence of other specified parts of digestive tract; Z78.0 Asymptomatic menopausal state; Z79.84 Long term (current) use of oral hypoglycemic drugs; Z87.891 Personal history of nicotine dependence
CPT/HCPCS: 77063; 77067

== ENCOUNTER → 2024-05-21 | Outpatient (CLI) | payer MEDICAID ==
[2024-05-21 14:26] VITALS: BP 123/70; PULSE 84; RESP 16; TEMP 98.3
--- NOTE | 2024-05-21 14:53 | P.HPOB ---
History of Present Illness H&P Date: 05/21/24 Chief Complaint: The patient is here for her routine gynecologic exam and ma mmogram. This is a 58-year-old with an LMP of 2019. The patient has been experiencing discomfort with sexual activity. She is otherwise without gynecologic complaints. Review of Systems The patient has lost 9 pounds over the last year. She has been trying to lose weight with diet and exercise. She denies respiratory, cardiac, or G.I. problems. Past Medical History Past Medical History: Diabetes Mellitus, Hypertension Additional Past Medical History / Comment(s): Type 2 diabetes. PAST PROGRAM SERVICES ASSISTANT HISTORY: She has no history of STDs. History of Any Multi-Drug Resistant Organisms: None Reported Past Surgical History: Breast Surgery, Section, Cholecystectomy Additional Past Surgical History / Comment(s): 2 followed by . Right shoulder rotator cuff surgery. Excisional biopsy LEFT BREAST (BENIGN). Colonoscopy 2018(next after 10yr). Past Anesthesia/Blood Transfusion Reactions: Postoperative Nausea & Vomiting (PONV) Past Psychological History: No Psychological Hx Reported Smoking Status: Former smoker Past Alcohol Use History: Occasional (About 1 drink per month.) Additional Past Alcohol Use History / Comment(s): QUIT 2013, STARTED AT AGE 33 (1998), SMOKED 1 PPD Past Drug Use History: None Reported Additional History: She is . She has been with her boyfriend since 2005 and they do not live together. She is a specialist wound care at [employer] - Past Family History Mother Family Medical History: Dementia, Pulmonary Embolus Additional Family Medical History / Comment(s): Maternal uncle had lung cancer and 3 maternal aunts had breast cancer. Father Family Medical History: Unable to Obtain Medications and Allergies Home Medications Medication Instructions Recorded Confirmed Type Acetaminophen Tab [Tylenol Tab] 500 mg PO Q4H PRN 07/15/15 05/21/24 History Ibuprofen [Motrin] 800 mg PO DAILY PRN 03/05/20 05/21/24 History Empagliflozin [Jardiance] 25 mg PO DAILY 10/27/20 05/21/24 History Omeprazole 40 mg PO DAILY 01/11/22 05/21/24 History Losartan [Cozaar] 100 mg PO DAILY 02/21/23 05/21/24 History Tirzepatide [Mounjaro] 15 mg INJ WEEKLY 02/21/23 05/21/24 History Allergies Allergy/AdvReac Type Severity Reaction Status Date / Time No Known Allergies Allergy Verified 05/21/24 14:14 Exam Vital Signs Temp Pulse Resp BP Pulse Ox 05/21/24 14:20 98.3 F 84 16 123/70 96 Intake and Output 05/20/24 05/21/24 05/21/24 22:59 06:59 14:59 Other: Weight 96.615 kg Height 5 feet 3 inches, weight 213 pounds, BMI 37.7. This is a well-developed well-nourished white female who is alert and oriented times 3 in no acute distress. HEENT: Within normal limits. NECK: Supple without mass or thyromegaly. CHEST AND LUNGS: Clear to auscultation. HEART: Regular rate and rhythm. BREASTS: Are without mass or discharge. There is bilateral nipple inversion. The patient states she has had this all her life. AXILLARY EXAM: Negative for adenopathy. BACK: Negative for CVA tenderness. ABDOMEN: Soft, nontender, without palpable masses. PELVIC EXAM: Normal external genitalia mild atrophy. Cervix and vagina appear normal with mild atrophy. There is no unusual discharge. There is no evidence of prolapse. The uterus is midposition, nongravid size and nontender. There are no palpable adnexal masses or tenderness. RECTAL EXAM: Rectovaginal exam is negative for mass or tenderness and is nega tive for occult blood. EXTREMITIES: Nontender. IMPRESSION: 1. 58-year-old menopausal female with normal gynecologic exam. 2. Vaginal dryness secondary to genital atrophy. PLAN: 1. Pap smear was deferred since she had a negative Pap smear cotest on 10/27/2020. 2. Self breast awareness was discussed with the patient. We have also discussed symptoms associated with inflammatory breast cancer. 3. Screening mammogram will be done today. 4. Osteoporosis prevention was discussed. 5. I recommended trial of a vaginal lubricant which she can get [id number]. If she continues to have issues with dyspareunia, we can have a trial of estrogen cream or tablets used vaginally. She will call if she wants to try this. 6. She was advised to return in one year for her annual well woman exam and as needed.
--- NOTE | 2024-05-21 15:15 | MM ---
Reason for Exam: Screening (asymptomatic). Last mammogram was performed 1 year(s) and 3 month(s) ago. Patient History: Menarche at age 15. First Full-Term at age 21. Postmenopausal. 2006, Benign Excisional Biopsy on the left side. Maternal aunt had breast cancer. Risk Values: Daxa 5 year model risk: 1.2%. NCI Lifetime model risk: 7.6%. Prior Study Comparison: 01/11/2022 Bilateral MG 3D screening mammo w/cad, [facility]. 08/12/2022 Right MG 3D diag mammo w/cad RT, [facility]. 02/21/2023 Bilateral MG 3D screening mammo w/cad, [facility]. Tissue Density: The breasts are heterogeneously dense, which may obscure small masses. Findings: Analyzed By CAD. Benign-appearing bilateral axillary lymph nodes are redemonstrated. A few tiny benign-appearing round calcifications bilaterally are redemonstrated. There is no suspicious new group of microcalcifications or new suspicious mass in either breast. Overall Assessment: Benign, BI-RAD 2 Management: Screening Mammogram of both breasts in 1 year. . Patient should continue monthly self-breast exams. A clinical breast exam by your physician is recommended on an annual basis. This exam should not preclude additional follow-up of suspicious palpable abnormalities. Note on Daxa scores and lifetime risk: 1. A Daxa score greater than 3% is considered moderate risk. If this is the case, consider specialist referral to assess eligibility for a risk reducing agent. 2. If overall lifetime risk for the development of breast cancer is 20% or higher, the patient may qualify for future screening with alternating mammogram and breast MRI. [facility], , 05/21/2024 3:12 PM. Electronically signed and approved by: David Falk M.D.
== END ==
LOC: WWCWWP 13:57
PROVIDERS: ATTEND Obstetrics & Gynecology
DX: Z12.31 Encounter for screening mammogram for malignant neoplasm of breast (principal); R92.333 Mammographic heterogeneous density, bilateral breasts; Z80.3 Family history of malignant neoplasm of breast; Z87.891 Personal history of nicotine dependence; Z78.0 Asymptomatic menopausal state
CPT/HCPCS: 77063; 77067